=== PATIENT | female | born 1995 | race American Indian/Alaskan Native ===

== ENCOUNTER 2018-10-20 07:32 | Emergency (ER) | payer MEDICAID, OTHER ==
[2018-10-20 07:35] VITALS: BP 112/55
--- NOTE | 2018-10-20 09:17 | Emergency Department Report ---
Eye Injury/Foreign Body - HPI Duration: 1 Day Eye Location: Left Severity: Mild Tetanus Status: Up to Date Eye Symptoms: Eye Pain: No, Blurred Vision: No, Eye Redness: Yes, Grinding/Hammering Metal: No, Used Eye Protection: No, Contact Lens Use: No, Recalls Injury: No, Photophobia: No Other History: PT is a 22-year-old female who comes to the ER with left eye redness and matting when she woke up this morning. She denies trauma. She does not work contacts. She denies any medical problems. She is on no home medications. There is no eye pain. Vision is intact and unchanged. ED Review of Systems ROS: Stated complaint: PINK EYE Other details as noted in HPI Comment: All other systems reviewed and negative ED Past Medical Hx - Past Medical History Previous Medical History?: Yes Hx Hypertension: No Hx Congestive Heart Failure: No Hx Diabetes: No Hx Deep Vein Thrombosis: No Hx Renal Disease: No Hx Sickle Cell Disease: Yes (trait) Hx Seizures: No Hx Asthma: No Hx COPD: No Hx HIV: No - Surgical History Past Surgical History?: No - Social History Smoking Status: Never Smoker Substance Use Type: None - Medications Home Medications: Home Medications Medication Instructions Recorded Confirmed Last Taken Type Pnv No.95/Ferrous Fum/Folic AC 1 each PO QDAY 07/23/17 07/23/17 07/22/17 12:00 History [ Formula Tablet] Ibuprofen [Motrin 800 MG tab] 800 mg PO TID PRN #30 tablet 07/24/17 Unknown Rx Polymyxin B Sulf/Trimethoprim 3 drops OS Q4H #3 day 10/20/18 Unknown Rx [Polytrim Eye Drops] Eye Injury Exam - Exam General: Vital signs noted. No distress. Alert and acting appropriately. WDWN patient in NAD VS per RN flow sheet Alert and oriented to person, place and time. S1-S2. No S3 or S4. No systolic or diastolic murmur. No JVD. No pitting edema. Lungs clear to auscultation bilaterally anteriorly and posteriorly. Abdomen soft nontender bowel sounds X4 Moves all extremities well. Mood and affect appropriate. MILD L CONJUNCTIVAL REDNESS ED Course Vital Signs 10/20/18 07:33 Temperature 97.6 F Pulse Rate 65 Respiratory 16 Rate Blood Pressure 112/55 O2 Sat by Pulse 100 Oximetry ED Medical Decision Making - Medical Decision Making SIMPLE CONJUNCTIVITIS NO CONTACTS NO TRAUMA NO EYE PAIN EOMS INTACT VISION INTACT NO TEARING Vital Signs 10/20/18 07:33 Temperature 97.6 F Pulse Rate 65 Respiratory 16 Rate Blood Pressure 112/55 O2 Sat by Pulse 100 Oximetry Critical care attestation.: If time is entered above; I have spent that time in minutes in the direct care of this critically ill patient, excluding procedure time. ED Disposition Clinical Impression: Conjunctivitis Disposition: DC-01 TO HOME OR SELFCARE Is pt being admited?: No Does the pt Need Aspirin: No Condition: Stable Instructions: Conjunctivitis (ED) Referrals: CAMERON BRADLEY MD [Primary Care Provider] - 3-5 Days CLINTON VARGHESE MD [Staff Physician] - 3-5 Days Time of Disposition: 09:15
== END 2018-10-20 09:29 | disposition home or self-care (01) ==
LOC: ED 07:32
DX: H10.9 Unspecified conjunctivitis (principal); D57.3 Sickle-cell trait

== ENCOUNTER 2018-10-28 22:35 | Emergency (ER) | payer OTHER ==
[2018-10-28 22:59] VITALS: BP 122/63
[2018-10-28 23:59] LABS: Bilirubin,Urine NEG (Negative); Blood,Urine NEG (Negative); Color,Urine Yellow (Yellow); Mucus,Urine FEW /HPF; Protein,Urine <15 mg/dL mg/dL (Negative); Urobilinogen,Urine < 2.0 mg/dL (<2.0)
[2018-10-29 00:02] LABS: HCG Qualitative,Urine Negative (Negative)
[2018-10-29 00:35] LABS: Basophils % (Auto) 0.5 % (0.0-1.8); Eosinophils % (Auto) 0.4 % (0.0-4.3); Hematocrit 37.9 % (30.3-42.9); Hemoglobin 12.8 gm/dl (10.1-14.3); Lymphocytes # (Auto) 3.3 K/mm3 (1.2-5.4); Lymphocytes % (Auto) 49.2 % (13.4-35.0); Mean Corpuscular HGB Conc 34 % (30-34); Mean Corpuscular Volume 90 fl (79-97); Monocytes # (Auto) 0.4 K/mm3 (0.0-0.8); Platelet Count 350 K/mm3 (140-440); Red Cell Distribution Width 15.2 % (13.2-15.2)
--- NOTE | 2018-10-29 01:00 | Cat Scan Report ---
PROCEDURE: CT HEAD/BRAIN WO CON TECHNIQUE: Computerized tomography of the head was performed without contrast material. HISTORY: headache COMPARISONS: None . FINDINGS: Skull and scalp: Normal . Paranasal sinuses: Normal . Ventricles and subarachnoid spaces: Normal . Cerebrum: No evidence of hemorrhage, acute infarction or mass . Cerebellum and brainstem: No evidence of hemorrhage, acute infarction or mass . Vasculature: Normal . Other: None . IMPRESSION: No evidence of hemorrhage, acute infarction or mass . This document is electronically signed by Td Perez MD., October 29 2018 12:58:24 AM ET
[2018-10-29] MEDS ORDERED: IBUPROFEN PO ONE (01:08)
[2018-10-29 01:27] LABS: BUN/Creatinine Ratio 11; Blood Urea Nitrogen 8 mg/dL (7-17); Calcium 9.1 mg/dL (8.4-10.2); Hemolysis Index 1
--- NOTE | 2018-10-29 02:08 | Emergency Department Report ---
ED Headache HPI - General Chief Complaint: Headache Stated Complaint: HEADACHES WEAKNESS Time Seen by Provider: 10/29/18 00:02 - History of Present Illness Initial Comments: This is a 22-year-old female nontoxic, well nourished in appearance, no acute signs of distress presents to the ED with c/o of acute on chronic headache. P atient describes headache as diffuse with level of 3 out of 10. Patient denies thunderclap headache. Patient denies any radiation of pain. Patient denies any head trauma. Patient denies any visual changes. Patient denies worse headache. Patient stated that darkness makes headache better and bright lights make the headache worse. Patient denies any numbness, tingling, fever, chills, nausea, vomiting, chest pain, shortness of breath, stiff neck. Patient denies facial drooping or one sided weakness. Patient denies any radiation of pain. Patient denies any allergies. Past medical history includes migraine headaches. Quality: mild, achy Head Injury Location: other (diffuse) Recent Head Trauma: no recent headache/trauma Associated Symptoms: denies symptoms. denies: confusion, fatigue, facial pain, fever/chills, flushing, loss of consciousness, nausea/vomiting, nasal congestion, nasal drainage, numbness in legs/feet, rash, seizures, sinus infection, stiff neck, vision changes, weakness Allergies/Adverse Reactions: Allergies No Known Allergies Allergy (Verified 07/22/17 23:40) Home Medications: Ambulatory Orders Pnv No.95/Ferrous Fum/Folic AC [ Formula Tablet] 1 each PO QDAY 07/23/17 Ibuprofen [Motrin 800 MG tab] 800 mg PO TID PRN #30 tablet 07/24/17 Polymyxin B Sulf/Trimethoprim [Polytrim Eye Drops] 3 drops OS Q4H #3 day 10/20/18 Butalb/Acetaminophen/Caffeine [Fioricet 50-300-40 mg CAP] 1 cap PO Q6HR PRN #12 cap 10/29/18 ED Review of Systems ROS: Stated complaint: HEADACHES WEAKNESS Other details as noted in HPI Constitutional: denies: chills, fever Eyes: denies: eye pain, eye discharge, vision change ENT: denies: ear pain, throat pain Respiratory: denies: cough, shortness of breath, wheezing Cardiovascular: denies: chest pain, palpitations Endocrine: no symptoms reported Gastrointestinal: denies: abdominal pain, nausea, diarrhea Genitourinary: denies: urgency, dysuria, discharge Musculoskeletal: denies: back pain, joint swelling, arthralgia Skin: denies: rash, lesions Neurological: headache. denies: weakness, paresthesias Psychiatric: denies: anxiety, depression Hematological/Lymphatic: denies: easy bleeding, easy bruising ED Past Medical Hx - Past Medical History Previous Medical History?: Yes Hx Hypertension: No Hx Congestive Heart Failure: No Hx Diabetes: No Hx Deep Vein Thrombosis: No Hx Renal Disease: No Hx Sickle Cell Disease: Yes (trait) Hx Seizures: No Hx Asthma: No Hx COPD: No Hx HIV: No - Surgical History Past Surgical History?: No - Social History Smoking Status: Never Smoker Substance Use Type: None - Medications Home Medications: Home Medications Medication Instructions Recorded Confirmed Last Taken Type Pnv No.95/Ferrous Fum/Folic AC 1 each PO QDAY 07/23/17 07/23/17 07/22/17 12:00 History [ Formula Tablet] Ibuprofen [Motrin 800 MG tab] 800 mg PO TID PRN #30 tablet 07/24/17 Unknown Rx Polymyxin B Sulf/Trimethoprim 3 drops OS Q4H #3 day 10/20/18 Unknown Rx [Polytrim Eye Drops] Butalb/Acetaminophen/Caffeine 1 cap PO Q6HR PRN #12 cap 10/29/18 Unknown Rx [Fioricet 50-300-40 mg CAP] ED Physical Exam - General Limitations: No Limitations General appearance: alert, in no apparent distress - Head Head exam: Present: atraumatic, normocephalic - Eye Eye exam: Present: normal appearance, PERRL, EOMI - Neck Neck exam: Present: normal inspection, full ROM. Absent: tenderness, m eningismus, lymphadenopathy - Extremities Exam Extremities exam: Present: normal inspection, full ROM - Back Exam Back exam: Present: normal inspection, full ROM. Absent: tenderness, CVA tenderness (R), CVA tenderness (L), muscle spasm, paraspinal tenderness, vertebral tenderness, rash noted - Neurological Exam Neurological exam: Present: alert, oriented X3, normal gait - Expanded Neurological Exam Expanded Patient oriented to: Present: person, place, time Cranial nerves: EOM's Intact: Normal, Facial Sensation: Normal Cerebellar function: Finger to Nose: Normal Upper motor neuron: Pronator Drift: Normal, Sensory Extinction: Normal Motor strength exam: RUE: 5, LUE: 5, RLE: 5, LLE: 5 Best Eye Response (Keiko): (4) open spontaneously Best Motor Response (Keiko): (6) obeys commands Best Verbal Response (Keiko): (5) oriented [place] Total: 15 - Psychiatric Psychiatric exam: Present: normal affect, normal mood - Skin Skin exam: Present: warm, dry, intact, normal color. Absent: rash ED Course Vital Signs 10/28/18 10/29/18 22:57 01:18 Temperature 98.1 F Pulse Rate 89 Respiratory 18 16 Rate Blood Pressure 122/63 O2 Sat by Pulse 100 Oximetry - Reevaluation(s) Reevaluation #1: 10/29/18 02:06 Patient is speaking in full sentences with no signs of distress noted. ED Medical Decision Making - Lab Data Result diagrams: 10/29/18 00:17 10/29/18 00:19 - Medical Decision Making This is a 22-year-old female that presents with headache. Patient is stable and was examined by me. Patient is neurologically stable. There is no stiff neck or neck pain. Vital signs are stable. Patient is afebrile. Labs unremarkable. Ct of head obtained and dictated by the radiologist within normal limits. Patient received Benadryl, Reglan, Toradol, and 1 L of normal saline which the patient stated that headache has subsided and resolved. Patient was instructed not to operate any machinery after discharged due to drowsiness of Benadryl. Patient stated that a family member will drive patient home. Patient is discharged with Fioricet. Patient was referred to Follow-up with a primary care/neurologist doctor in 3-5 days or if symptoms worsen and continue return to emergency room as soon as possible. At time of discharge, the patient does not seem toxic or ill in appearance. No acute signs of distress noted. Patient agrees to discharge treatment plan of care. No further questions noted by the patient. Critical care attestation.: If time is entered above; I have spent that time in minutes in the direct care of this critically ill patient, excluding procedure time. ED Disposition Clinical Impression: Chronic headache Qualifiers: Headache type: unspecified Intractability: not intractable Qualified Code(s): R51 - Headache Disposition: DC-01 TO HOME OR SELFCARE Is pt being admited?: No Does the pt Need Aspirin: No Condition: Stable Instructions: Acute Headache (ED), Butalbital/Aspirin/Caffeine (By mouth) Additional Instructions: Follow-up with a primary care/neurologist doctor in 3-5 days or if symptoms worsen and continue return to emergency room as soon as possible. Prescriptions: Butalb/Acetaminophen/Caffeine [Fioricet 50-300-40 mg CAP] 1 cap PO Q6HR PRN #12 cap PRN Reason: Headache Referrals: ARIE MENDIOLA MD [Primary Care Provider] - 3-5 Days PRIMARY CARE, [Referring] - 3-5 Days RITU MENDOZA MD [Staff Physician] - 3-[address] [facility] [place] [Outside] - 3-5 Days [facility] [Outside] - 3-5 Days Forms: Work/School Release Form(ED)
== END 2018-10-29 02:16 | disposition home or self-care (01) ==
LOC: ED 22:35
DX: G43.909 Migraine, unspecified, not intractable, without status migrainosus (principal); D57.3 Sickle-cell trait
CPT/HCPCS: 36415; 70450; 80048; 81001; 81025; 85025